=== PATIENT | male | born 1985 | race Caucasian/White ===

== ENCOUNTER 2020-07-12 10:47 | Emergency (ER) | payer BC, OTHER ==
[2020-07-12 10:58] VITALS: O2SAT 96
[2020-07-12] MEDS ORDERED: XYLOCAINE 2% HCL 20 ML MDV ONE (11:01)
[2020-07-12] MEDS: XYLOCAINE 2% HCL 20 ML MDV IJ ONE (11:01)
--- NOTE | 2020-07-12 11:21 | ERPHSYRPT ---
- History of Present Illness Time Seen by Provider: 07/12/20 11:00 Source: patient Exam Limitations: no limitations Patient Subjective Stated Complaint: pt here for laceration between 4th and 3rd right digit, while working on a grain bin Triage Nursing Assessment: pt alert, walked in, resp easy, skin w/d/p.laceration 1 inch in length no bleeding Physician History: Patient is a 35-year-old male presents to our emergency department for evaluation and treatment of a laceration sustained just prior to arrival. Laceration is located between the third and fourth knuckle into the webspace. Laceration measures 2 cm. Patient states he was working on a grain bin when injury occurred. Pain described as an ache that is well localized. No radiation. Patient denies foreign body sensation or foreign body in the lacerat ion. No other injuries reported. Patient's last tetanus was 5 years ago. Of note patient has hypertension. He has not been taking his blood pressure medication as prescribed. Patient otherwise asymptomatic. He voices no other complaints or concerns at this time. Timing/Duration: today Severity: mild Modifying Factors: Improves With: nothing Associated Symptoms: denies symptoms Allergies/Adverse Reactions: Penicillins Allergy (Mild, Verified 07/12/20 10:58) Nausea Hx Tetanus, Diphtheria Vaccination/Date Given: Yes Hx Influenza Vaccination/Date Given: No Hx Pneumococcal Vaccination/Date Given: No Immunizations Up to Date: Yes Travel Risk - International Travel Have you traveled outside of the country in past 3 weeks: No - Coronavirus Screening Are you exhibiting any of the following symptoms?: No Close contact with a COVID-19 positive Pt in past 14-21 Days: No - Vaccine Status Have you recieved a Covid-19 vaccination: No - Review of Systems Constitutional: No Symptoms, No Fever, No Chills Eyes: No Symptoms Ears, Nose, & Throat: No Symptoms Respiratory: No Symptoms, No Cough, No Dyspnea Cardiac: No Symptoms, No Chest Pain, No Edema, No Syncope Abdominal/Gastrointestinal: No Symptoms, No Abdominal Pain, No Nausea, No Vomiting, No Diarrhea Genitourinary Symptoms: No Symptoms, No Dysuria Musculoskeletal: No Symptoms, No Back Pain, No Neck Pain Skin: No Symptoms, No Rash Neurological: No Symptoms, No Dizziness, No Focal Weakness, No Sensory Changes Psychological: No Symptoms Endocrine: No Symptoms Hematologic/Lymphatic: No Symptoms Immunological/Allergic: No Symptoms All Other Systems: Reviewed and Negative - Past Medical History Pertinent Past Medical History: Yes Neurological History: Migraines ENT History: No Pertinent History Cardiac History: High Cholesterol, Hypertension Respiratory History: No Pertinent History Endocrine Medical History: No Pertinent History Musculoskeletal History: No Pertinent History GI Medical History: No Pertinent History History: No Pertinent History Psycho-Social History: No Pertinent History Male Reproductive Disorders: No Pertinent History - Past Surgical History Past Surgical History: Yes Neuro Surgical History: No Pertinent History Cardiac: No Pertinent History Respiratory: No Pertinent History Gastrointestinal: Appendectomy Genitourinary: No Pertinent History Musculoskeletal: Orthopedic Surgery Male Surgical History: No Pertinent History Other Surgical History: shoulder - Social History Smoking Status: Never smoker Exposure to second hand smoke: No Drug Use: none Patient Lives Alone: No - Nursing Vital Signs Nursing Vital Signs: Initial Vital Signs Temperature 97 F 07/12/20 10:52 Pulse Rate 98 H 07/12/20 10:52 Respiratory Rate 16 07/12/20 10:52 Blood Pressure 162/101 07/12/20 10:52 O2 Sat by Pulse Oximetry 96 07/12/20 10:52 Pain Scale Pain Intensity 0 - Physical Exam General Appearance: no apparent distress, alert Eye Exam: PERRL/EOMI, eyes nml inspection Ears, Nose, Throat Exam: normal ENT inspection, TMs normal, pharynx normal, moist mucous membranes Neck Exam: normal inspection, non-tender, supple, full range of motion Respiratory Exam: normal breath sounds, lungs clear, No respiratory distress Cardiovascular Exam: regular rate/rhythm, normal heart sounds, normal peripheral pulses Gastrointestinal/Abdomen Exam: soft, normal bowel sounds, No tenderness, No mass Back Exam: normal inspection, normal range of motion, No CVA tenderness, No vertebral tenderness Extremity Exam: normal inspection, normal range of motion, pelvis stable, other (2 cm laceration at the webspace between the third and fourth digit.) Neurologic Exam: alert, oriented x 3, cooperative, normal mood/affect, nml cerebellar function, nml station & gait, sensation nml, No motor deficits Skin Exam: normal color, warm, dry, No rash Lymphatic Exam: No adenopathy SpO2 Interpretation: normal SpO2: 96 O2 Delivery: Room Air Procedures - Laceration/Wound Repair Hand Time of Procedure: 11:00 Wound Location: Right Wound Length (cm): 2 Wound's Depth, Shape: superficial Wound Explored: clean Irrigated: Yes Hibiclens Prep: Yes Anesthesia: 2% Lidocaine Volume Anesthetic (ccs): 4 Wound Debrided: None Wound Repaired With: sutures Suture Size/Type: 5-0 Number of Sutures: 5 Layer Closure?: No Sterile Dressing Applied?: Yes Splint Applied?: No Sling Applied?: No Progress: 07/12/20 11:20 Patient neurovascularly intact post procedure. - Course Nursing assessment & vital signs reviewed: Yes Ordered Tests: Medication Summary Discontinued Medications Generic Name Dose Route Start Last Admin Trade Name Ludy PRN Reason Stop Dose Admin Clindamycin HCl 300 mg 07/12/20 11:00 Cleocin 150 Mg Capsule PO 07/12/20 11:01 STAT ONE Lidocaine HCl 5 ml 07/12/20 10:58 07/12/20 11:01 Xylocaine 2% Hcl 20 Ml Mdv IJ 07/12/20 10:59 5 ml STAT ONE Administration Lidocaine HCl Confirm 07/12/20 11:01 Xylocaine 2% Hcl 20 Ml Mdv Administered 07/12/20 11:02 Dose 5 ml .ROUTE .[facility] ONE - Progress Progress: improved Progress Note: Patient reassessed. He feels well. Vitals reveal elevated blood pressure. However patient is asymptomatic from this point of view. Patient does have a history of hypertension but has not been taking medication as prescribed. Laceration was repaired with 5 interrupted sutures. Suture material was a 5.0 Nylon. No procedural complications. No postprocedural complications. Patient neurovascular intact distally post procedure. Patient will follow up with his primary care doctor to address his blood pressure and to remove the sutures. Patient voices no other complaints or concerns at this time. 07/12/20 11:25 07/12/20 11:26 Counseled pt/family regarding: diagnosis, need for follow-up - Departure Departure Disposition: Home Clinical Impression: Hand laceration, Hypertension Condition: Stable Critical Care Time: No Instructions: Wound Care (DC), Laceration Repair With Stitches (DC) Prescriptions: Clindamycin HCl 150 mg [Cleocin 150 mg Capsule] 2 cap PO TID 5 Days #15 capsule
[2020-07-12] MEDS ORDERED: CLEOCIN 150 MG CAPSULE ONE (11:32)
[2020-07-12] MEDS ORDERED: BACIGUENT PACKET ONE (11:32)
[2020-07-12] MEDS: BACIGUENT PACKET TP ONE (11:33)
[2020-07-12] MEDS: CLEOCIN 150 MG CAPSULE PO ONE (11:33)
[2020-07-12 11:37] VITALS: BP 162/103; PULSE 80
== END 2020-07-12 11:43 | disposition home or self-care (01) ==
LOC: ED 10:47
DX: S61.219A Laceration without foreign body of unspecified finger without damage to nail, initial encounter (principal); W26.8XXA Contact with other sharp object(s), not elsewhere classified, initial encounter; I10 Essential (primary) hypertension
CPT/HCPCS: 12001; 99284; A9270-GY